=== PATIENT | male | born 1970 | race Asian ===

== ENCOUNTER 2024-10-18 08:35 | Emergency (ER) | payer BC, SELFPAY ==
[2024-10-18 08:35] VITALS: BMI 23.3
[2024-10-18 08:43] VITALS: BP 132/89; PULSE 92; RESP 18; TEMP 36.8; O2SAT 99; BMI 22.8
--- NOTE | 2024-10-18 08:53 | PD.EDRME ---
Rapid Medical Screening Exam RME Arrival date/time: 10/18/24 08:35 54-year-old male past medical history of CAD, pacemaker, and blood thinner presents emergency department complaining of epistaxis that started this morning. Chief Complaint: Epistaxis/Nasal Foreign Body Time Seen by Provider: 10/18/24 08:41 Vital signs: Vital Signs Temperature 98.2 F 10/18/24 08:43 Pulse Rate 92 10/18/24 08:43 Respiratory Rate 18 10/18/24 08:43 Blood Pressure 132/89 H 10/18/24 08:43 Pulse Oximetry (%) 99 10/18/24 08:43 Oxygen Delivery Method Room Air 10/18/24 08:43 Vital signs reviewed by provider: Yes
[2024-10-18 10:16] LABS: Basophils # (Auto) 0.1 Thou/mm3 (0.0-0.2); Basophils % (Auto) 1 % (0-2.5); Eosinophils # (Auto) 0.8 Thou/mm3 (0.0-0.5); Eosinophils % (Auto) 8 % (0-10); Hematocrit 40.4 % (41.0-53.0); Hemoglobin 13.6 g/dL (13.5-16.0); Immature Granulocytes % (Auto) 0 % (0-0); Immature Granulocytes Auto 0.04 Thou/mm3 (0.00-0.00); Lymphocytes # (Auto) 2.1 Thou/mm3 (1.0-4.8); Lymphocytes % (Auto) 21 % (10-50); Mean Corpuscular HGB Conc 33.7 g/dl (31.0-37.0); Mean Corpuscular Hemoglobin 30.6 pg (25.0-35.0); Mean Corpuscular Volume 91 fL (80-100); Monocytes # (Auto) 0.8 Thou/mm3 (0.0-0.8); Monocytes % (Auto) 8 % (0-12); Neutrophils # (Auto) 6.2 Thou/mm3 (1.8-7.7); Neutrophils % (Auto) 62 % (37-80); Nucleated Red Blood Cell % 0 /100 WBC (0); Platelet Count 328 Thou/mm3 (140-440); RDW Standard Deviation 41.6 fL (35.1-43.9); Red Blood Count 4.44 Miln/mm3 (4.50-5.90); White Blood Count 9.9 Thou/mm3 (3.8-10.6)
[2024-10-18 10:33] LABS: Partial Thromboplastin Time 28.6 Seconds (22.0-36.0); Prothrombin Time 10.9 Seconds (9.0-12.2)
[2024-10-18 10:48] LABS: Alanine Aminotransferase 33 U/L (10-49); Albumin, Serum 4.5 gm/dL (3.5-5.0); Albumin/Globulin Ratio 1.6 (1.2-2.2); Alkaline Phosphatase 97 U/L (46-116); Anion Gap 7 (7-16); Aspartate Amino Transferase 25 U/L (0-34); BUN/Creatinine Ratio 17 Ratio (12-20); Bilirubin,Total 0.7 mg/dL (0.3-1.2); Blood Urea Nitrogen 22 mg/dL (9-23); Calcium 9.7 mg/dL (8.3-10.6); Calcium (Corrected) 9.7 mg/dL (8.5-10.1); Chloride 105 mMol/L (98-107); Creatinine (Component) 1.3 mg/dL (0.6-1.3); Estimated Creatinine Clearance 55.2 mL/min (>60); Globulin 2.8 gm/dL (2.3-3.5); Glucose 155 mg/dL (74-106); Osmolality,Calculated 281 (275-295); Potassium 3.4 mMol/L (3.4-5.1); Sodium 138 mMol/L (136-145); Total Protein 7.3 gm/dL (5.7-8.2); eGFR > 60 See Note
--- NOTE | 2024-10-18 11:06 | EDNOTE_ITS ---
ED Epistaxis RME/HPI General Chief complaint: Epistaxis/Nasal Foreign Body Stated complaint: NOSE BLEEDING SINCE 0710 Time Seen by Provider: 10/18/24 08:41 Source: patient Arrival date/time: 10/18/24 08:35 54-year-old male past medical history of CAD, pacemaker, and blood thinner presents emergency department complaining of epistaxis that started this morning. Patient denies any recent illness or picking of nostril but does report was sneezing and bleeding started. Patient Nuys any other associated symptoms. Mode of arrival: ambulatory Limitations: no limitations RME / HPI RME / HPI Narrative: 10/18/24 08:35 54-year-old male past medical history of CAD, pacemaker, and blood thinner presents emergency department complaining of epistaxis that started this m orning. Related Data Previous Rx's ?Medication ?Instructions ?Recorded carvedilol 3.125 mg tablet 3.125 mg PO BIDWM #60 tabs 10/11/23 sacubitril 24 mg-valsartan 26 mg 1 tab PO BID #60 tabs 10/11/23 tablet (Entresto) spironolactone 25 mg tablet 25 mg PO QDAY #60 tabs 10/11/23 aspirin 81 mg capsule 81 mg PO QDAY #60 caps 10/12/23 Allergies Allergy/AdvReac Type Severity Reaction Status Date / Time No Known Allergies Allergy Verified 10/18/24 08:37 Review of Systems Review of Systems Systems Reviewed: All systems reviewed, normal except as documented Constitutional Constitutional: Reports system reviewed and no additional complaints, except as documented, Denies body ache(s), Denies chills and Denies fever(s) Eyes Eyes: Reports system reviewed and no additional complaints, except as documented and Denies change in vision ENT Ears, Nose, Mouth, and Throat: Reports system reviewed and no additional complaints, except as documented, Denies disequilibrium, Denies dizziness, Reports epistaxis, Denies sore throat and Denies vertigo Cardiovascular Cardiovascular: Reports system reviewed and no additional complaints, except as documented, Denies chest pain and Denies dyspnea Respiratory Respiratory: Reports system reviewed and no additional complaints, except as documented, Denies chest congestion, Denies cough and Denies dyspnea Gastrointestinal Gastrointestinal: Reports system reviewed and no additional complaints, except as documented, Denies abdominal pain, Denies nausea and Denies vomiting Musculoskeletal Musculoskeletal: Reports system reviewed and no additional complaints, except as documented, Denies abnormal gait and Denies arthralgias Integumentary/Breasts Skin/Breast: Reports system reviewed and no additional complaints, except as documented, Denies erythema, Denies rash and Denies wounds Neurologic Neurologic: Reports system reviewed and no additional complaints, except as documented, Denies abnormal gait, Denies disequilibrium, Denies dizziness and Denies vertigo ED Exam General Limitations: Present no limitations General appearance: Present alert and in no apparent distress Head Head exam: Present atraumatic Eye Eye exam: Present normal appearance, PERRL and EOMI ENT ENT exam: Present normal exam, normal oropharynx and mucous membranes moist Expanded ENT Exam Nasal speculum exam: Left: epistaxis (5.5 with 5 mL of air Rhino Rocket to left nare) Neck Neck exam: Present normal inspection, full ROM and trachea midline Chest Chest inspection: Present normal inspection and symmetric chest wall rise Respiratory Respiratory exam: Present normal lung sounds bilaterally Cardiovascular Cardiovascular exam: Present regular rate, normal rhythm and normal heart sounds Abdominal Exam Abdominal exam: Present soft and normal bowel sounds Extremities Exam Extremities exam: Present normal inspection and full ROM Back Exam Back exam: Present normal inspection and full ROM Neurological Exam Neurological exam: Present alert, oriented X3 and CN II-XII intact Psychiatric Psychiatric exam: Present normal affect and normal mood Skin Skin exam: Present warm, dry, intact and normal color Course Quality Measures none Orders Category Date Time Status CBC Stat Lab 10/18/24 09:50 Completed CMP [Comprehensive Metabolic Panel] Stat Lab 10/18/24 09:50 Completed PT [Prothrombin Time with INR] Stat Lab 10/18/24 09:50 Completed PTT [Partial Thromboplastin Time] Stat Lab 10/18/24 09:50 Completed Vital Signs Vital signs: Vital Signs Temperature 98.2 F 10/18/24 08:43 Pulse Rate 92 10/18/24 08:43 Respiratory Rate 18 10/18/24 08:43 Blood Pressure 132/89 H 10/18/24 08:43 Pulse Oximetry (%) 99 10/18/24 08:43 Oxygen Delivery Method Room Air 10/18/24 08:43 99% room air within normal limits Procedures -ED Epistaxis Control Time Out Performed: Yes Nostril: left Nose Prepped With: other (N/A) Direct Inspection: yes Clots Removed by: blowing nose Cautery Used: none Device Inserted: other (Rhino Rocket 5.5 and inflated with 5 mL of air) Device Size: 5 Patient Tolerated Procedure: Well Epistaxis MDM Narrative MDM Narrative:: 54-year-old male past medical history of CAD, pacemaker, and blood thinner presents emergency department complaining of epistaxis that started this morning. Patient denies any recent illness or picking of nostril but does report was sneezing and bleeding started. Patient Nuys any other associated symptoms. CBC was unremarkable. CMP was unremarkable. Coagulation studies were unremarkable as well. Size 5.5 Rhino Rocket inflated with 5 mL of air was inserted to left nare which patient tolerated well and stopped bleeding. Patient appears nontoxic and is hemodynamically stable. Instructed patient to return in 48 hours for removal of Rhino Rocket patient verbalized understanding. Instructed to return to emergency department for any worsening symptoms or as needed Patient data External records reviewed:: [facility] previous records Clinical information provided by:: patient Social determinants that could affect healthcare access:: none Patient has the following chronic illnesses:: See chart How is presenting disease/condition affected by chronic disease/condition?: uneffected by Evaluation data The following diagnostics were reviewed and interpreted by me:: lab results Lab and/or radiology exams considered but not ordered:: Ordered Interpretation Summary: Interpreted by me Medications / Prescriptions Medications or Prescriptions considered but not ordered:: N/A Medication administrations:: N/A Consultations Consultation(s) initiated? (list below): No Diagnosis Epistaxis Differential Diagnosis: anterior epistaxis and posterior epistaxis Most likely diagnosis given after review of the tests above:: Epistaxis Admission Indicated Admission indicated?: not indicated Admission Request Was there a request for admission?: No Disposition Plan Disposition Plan: Discharge Discharge Attestation Discharge Attestation: The patient and all family members were given an opportunity to ask questions and understood the discharge instructions. Discharge instructions specifically effects, indications for sooner follow up or return to the emergency department, and the expected course of current diagnosis. Patient condition: Stable Discharge Plan Plan Patient Disposition: HOME (Self Care) Disposition Comment: Stable Prescriptions/Referrals Prescriptions/Med Rec: No Action spironolactone 25 mg Tablet 25 mg PO QDAY Qty: 60 0RF carvedilol 3.125 mg Tablet 3.125 mg PO BIDWM Qty: 60 0RF Entresto 24-26 mg Tablet 1 tab PO BID Qty: 60 0RF aspirin 81 mg capsule 81 mg PO QDAY Qty: 60 1RF Referrals: Ted Shell MD [Primary Care Provider] - In 1 week Problem List Clinical Impression: Epistaxis Patient/Caregiver Discharge Instructions Discharge Activity: activity as tolerated Education Materials: Nosebleed, ED Epistaxis (Adult) Additional Instructions: Take Tylenol as needed for pain. Follow-up with primary care provider upon discharge and request referral to ENT if symptoms persist. Return to the emergency department in 48 hours for removal of Rhino Rocket. Return to emergency department for any worsening symptoms or as needed. Print Language: Japanese Stand Alone Forms: Clau Award Info., Patient Portal Info Letter PA/INSPECTOR CASING Supervising Physician BILL/ALBER Supervising Physician: Dr. Faustin
[2024-10-18 11:39] VITALS: BP 123/85; PULSE 86; RESP 18; TEMP 36.6; O2SAT 95
== END 2024-10-18 12:26 | disposition home or self-care (01) ==
PROVIDERS: Emergency Provider Emergency Medicine; PCP Family Medicine
DX: R04.0 Epistaxis (principal); I25.10 Atherosclerotic heart disease of native coronary artery without angina pectoris; Z95.0 Presence of cardiac pacemaker
CPT/HCPCS: 30901; 36415; 80053; 85025; 85610; 85730; 99283

== ENCOUNTER 2024-10-20 12:12 | Emergency (ER) | payer BC, MEDICAID, SELFPAY ==
[2024-10-20 12:13] VITALS: BMI 22.8
[2024-10-20 12:25] VITALS: BP 136/74; PULSE 74; RESP 18; TEMP 36.9; O2SAT 99
[2024-10-20] MEDS: SILVER NITRATE 1 APPL EA 2 APPL TOP (12:57)
[2024-10-20] MEDS: OXYMETAZOLINE NAS SPRY 0.05% 15 ML BTL NASAL (12:58)
[2024-10-20] MEDS: HYDROcodone/APAP 5/325 TABLET 1 TAB PO (14:26)
--- NOTE | 2024-10-20 15:07 | EDNOTE_ITS ---
ED Epistaxis RME/HPI General Chief complaint: Epistaxis/Nasal Foreign Body Stated complaint: NEEDS RHINO ROCKET REMOVED Time Seen by Provider: 10/20/24 12:18 Arrival date/time: 10/20/24 12:12 54-year-old male with medical history hypertension, hypercholesterolemia, significant for pacemaker placement on Eliquis presents emergency department today requesting Rhino Rocket removal patient had a placed 2 days ago on last visit Limitations: no limitations Related Data Previous Rx's ?Medication ?Instructions ?Recorded carvedilol 3.125 mg tablet 3.125 mg PO BIDWM #60 tabs 10/11/23 sacubitril 24 mg-valsartan 26 mg 1 tab PO BID #60 tabs 10/11/23 tablet (Entresto) spironolactone 25 mg tablet 25 mg PO QDAY #60 tabs 10/11/23 aspirin 81 mg capsule 81 mg PO QDAY #60 caps 10/12/23 Allergies Allergy/AdvReac Type Severity Reaction Status Date / Time No Known Allergies Allergy Verified 10/20/24 12:13 Review of Systems Review of Systems Systems Reviewed: All systems reviewed, normal except as documented Constitutional Constitutional: Reports system reviewed and no additional complaints, except as documented, Denies fever(s) and Denies headache(s) Eyes Eyes: Reports system reviewed and no additional complaints, except as documented and Denies blurry vision ENT Ears, Nose, Mouth, and Throat: Reports system reviewed and no additional complaints, except as documented, Denies headache(s), Denies nasal congestion, Denies nasal discharge and Reports other (Left-sided nosebleed) Cardiovascular Cardiovascular: Reports system reviewed and no additional complaints, except as documented, Denies chest pain and Denies dyspnea Respiratory Respiratory: Reports system reviewed and no additional complaints, except as documented, Denies chest congestion, Denies cough and Denies dyspnea Gastrointestinal Gastrointestinal: Reports system reviewed and no additional complaints, except as documented and Denies abdominal pain Integumentary/Breasts Skin/Breast: Reports system reviewed and no additional complaints, except as documented and Denies rash Neurologic Neurologic: Reports system reviewed and no additional complaints, except as documented, Reports as per HPI and Denies headache(s) Past Medical History Past Medical History NEUROLOGIC: Negative Neurological Disorders or Seizures CARDIAC: Negative Cardiac Disorders or Congestive Heart Failure RESPIRATORY: Negative Chronic Obstructive Pulmonary Disease (COPD) or Asthma GASTROINTESTINAL: Negative Gastrointestinal Disorders GENITOURINARY: Negative Genitourinary Disorders or Renal Disease MUSCULOSKELETAL: Negative Musculoskeletal Disorders ENDOCRINE: Negative Endocrine Disorders, Diabetes Mellitus Type 1 or Diabetes Mellitus Type 2 HEMATOLOGIC: Negative Blood Disorders or Sickle Cell Disease OTHER HISTORY: Negative Hospitalization, Autoimmune Disease, Down Syndrome, Developmental Delay, Shingles, Falls, Blood Transfusions, Anesthesia Reactions, MRSA or Vancomycin-Resistant Enterococci Family History FAMILY HISTORY: Positive Family Cardiac Disorders Social History SMOKING STATUS: Never smoker ED Exam General Limitations: Present no limitations General appearance: Present alert and in no apparent distress Head Head exam: Present atraumatic Eye Eye exam: Present normal appearance, PERRL and EOMI ENT ENT exam: Present mucous membranes moist and other (Bleeding left nare) Neck Neck exam: Present normal inspection, full ROM and trachea midline Chest Chest inspection: Present normal inspection and symmetric chest wall rise Respiratory Respiratory exam: Present normal lung sounds bilaterally Cardiovascular Cardiovascular exam: Present regular rate, normal rhythm and normal heart sounds Abdominal Exam Abdominal exam: Present soft and normal bowel sounds Extremities Exam Extremities exam: Present normal inspection and full ROM Back Exam Back exam: Present normal inspection and full ROM Neurological Exam Neurological exam: Present alert, oriented X3 and CN II-XII intact Psychiatric Psychiatric exam: Present normal affect and normal mood Skin Skin exam: Present warm, dry, intact and normal color Course Quality Measures none Orders Category Date Time Status HYDROcodone*/APAP 5/325 [[place] 5/325] Med 10/20/24 14:22 Discontinued 1 tab PO X1 ONE Oxymetazoline Deyvi Peosta 0.05% [Afrin Nasal [place]] Med 10/20/24 12:53 Discontinued See Dose Instructions NASAL X1 ONE Silver Nitrate Applicators Med 10/20/24 12:53 Discontinued 2 appl TOP X1 ONE Vital Signs Vital signs: Vital Signs Temperature 98.5 F 10/20/24 12:25 Pulse Rate 74 10/20/24 12:25 Respiratory Rate 18 10/20/24 12:25 Blood Pressure 136/74 H 10/20/24 12:25 Pulse Oximetry (%) 99 10/20/24 12:25 Oxygen Delivery Method Room Air 10/20/24 12:25 O2 saturation 99% room air within normal limits Epistaxis MDM Narrative MDM Narrative:: 54-year-old male with medical history hypertension, hypercholesterolemia, significant for pacemaker placement on Eliquis presents emergency department today requesting Rhino Rocket removal patient had a placed 2 days ago on last visit Patient's Rhino Rocket was removed and patient started bleeding immediately attempted to apply pressure and use Afrin spray without success Attempted to cauterize with silver nitrate nostrils also without success Patient was given [place] for pain After putting a 7.5 nasal Rhino Rocket bleeding has completely resolved Patient has no bleeding at the time of discharge I explained to the patient if he develops more bleeding or any other concerns he must return to the ER immediately for further evaluation otherwise patient instructed to return in 3 days for Rhino Rocket removal for the next 2 days patient instructed not to take any Eliquis Patient data External records reviewed:: [facility] previous records Clinical information provided by:: patient Social determinants that could affect healthcare access:: none Patient has the following chronic illnesses:: Hypertension, hypercholesterolemia, pacemaker placement How is presenting disease/condition affected by chronic disease/condition?: no chronic disease Evaluation data The following diagnostics were reviewed and interpreted by me:: other (specify) (N/A) Lab and/or radiology exams considered but not ordered:: Considered and not ordered Interpretation Summary: N/A Medications / Prescriptions Medications or Prescriptions considered but not ordered:: Given Medication administrations:: Medication Administration History Discontinued Medications Hydrocodone Bitart/Acetaminophen (Hydrocodone/Apap 5/325 Tablet) 1 tab PO X1 ONE Stop: 10/20/24 14:23 Last Admin: 10/20/24 14:26 Dose: 1 tab Documented By: OA Oxymetazoline HCl (Oxymetazoline Deyvi Peosta 0.05% 15 Ml Btl) 0 spray NASAL X1 ONE Stop: 10/20/24 12:54 Last Admin: 10/20/24 12:58 Dose: 2 spray Documented By: DB Silver Nitrate (Silver Nitrate 1 Appl Ea) 2 appl TOP X1 ONE Stop: 10/20/24 12:54 Last Admin: 10/20/24 12:57 Dose: 2 appl Documented By: DB Comments: applied by UYEN Gamble Consultations Consultation(s) initiated? (list below): No Diagnosis Epistaxis Differential Diagnosis: anterior epistaxis and posterior epistaxis Most likely diagnosis given after review of the tests above:: Anterior epistaxis Admission Indicated Admission indicated?: not indicated Admission Request Was there a request for admission?: No Disposition Plan Disposition Plan: Discharge Discharge Attestation Discharge Attestation: The patient and all family members were given an opportunity to ask questions and understood the discharge instructions. Discharge instructions specifically effects, indications for sooner follow up or return to the emergency department, and the expected course of current diagnosis. Patient condition: Stable Discharge Plan Plan Patient Disposition: HOME (Self Care) Disposition Comment: Stable Prescriptions/Referrals Prescriptions/Med Rec: No Action spironolactone 25 mg Tablet 25 mg PO QDAY Qty: 60 0RF carvedilol 3.125 mg Tablet 3.125 mg PO BIDWM Qty: 60 0RF Entresto 24-26 mg Tablet 1 tab PO BID Qty: 60 0RF aspirin 81 mg capsule 81 mg PO QDAY Qty: 60 1RF Referrals: Bess Vazquez FNP [Primary Care Provider] - In 1 week Problem List Clinical Impression: Epistaxis Patient/Caregiver Discharge Instructions Education Materials: ED Epistaxis (Adult) Additional Instructions: Please return in 3 days for packing removal for worsening symptoms return immediately Please do not take your Eliquis for the next 3 days Print Language: Danish Stand Alone Forms: Clau Award Info., Patient Portal Info Letter BILL/ALBER Supervising Physician BILL/ALBER Supervising Physician: dr alvarez
== END 2024-10-20 15:13 | disposition home or self-care (01) ==
PROVIDERS: Emergency Provider Emergency Medicine; PCP Registered Nurse Community Health
DX: R04.0 Epistaxis (principal); I10 Essential (primary) hypertension; E78.00 Pure hypercholesterolemia, unspecified; Z79.01 Long term (current) use of anticoagulants; Z95.0 Presence of cardiac pacemaker
CPT/HCPCS: 30901; 99283; A9270

== ENCOUNTER 2024-10-23 15:26 | Emergency (ER) | payer BC, MEDICAID, SELFPAY ==
[2024-10-23 15:27] VITALS: BMI 28.3
[2024-10-23 16:27] VITALS: BP 127/78; PULSE 77; RESP 19; TEMP 36.7; O2SAT 98; BMI 22.1
--- NOTE | 2024-10-23 18:26 | PD.EDEPIST ---
ED Epistaxis RME/HPI General Chief complaint: Epistaxis/Nasal Foreign Body Stated complaint: NEEDS NASAL PASKING REMOVED LEFT NARES Time Seen by Provider: 10/23/24 18:26 Arrival date/time: 10/23/24 15:26 54 year old male present to emergency room for nasal packing removal placed 3 days ago. no complication LOCATION: nose SEVERITY: Symptoms are described as being severe with limitations on activities of daily living CONTEXT: The patient is unable to identify any inciting events. DURATION/TIMING: The symptoms started approximately 3 days ago ASSOCIATED SYMPTOMS: The patient is unable to identify any other associated symptoms. MODIFYING FACTORS: The patient is unable to identify any alleviating or aggravating symptoms. PERTINENT ROS: no fevers, no cough, no chest pain/shortness of breath no nausea,vomiting, diarrhea, no dizziness/headache no rash no loc/syncope episode REVIEW OF SYSTEMS: See History of Present Illness - with the exception of those mentioned in the history of present illness, all other systems reviewed and reported as negative GENERAL: In general the patient is awake, interactive, in an emergency department gurney. HEAD/EYES/EARS/NOSE/THROAT: + left nare rhino rocket noted. no active bleeding normo-cephalic, atraumatic, mucus membranes are moist, anicteric, palpebral conjunctiva is pink, trachea is midline. EXTREMITY: no tenderness to palpation over the long bones or large joints of the bilateral upper and lower extremities, no joint swelling, no joint erythema, no signs of trauma, no unilateral leg swelling and no peripheral edema. SKIN: warm, dry, well-perfused, no jaundice, no rash, no telangiectasias or petechia. PSYCH: calm, cooperative, no evidence of psychosis or agitation Related Data Previous Rx's ?Medication ?Instructions ?Recorded carvedilol 3.125 mg tablet 3.125 mg PO BIDWM #60 tabs 10/11/23 sacubitril 24 mg-valsartan 26 mg 1 tab PO BID #60 tabs 10/11/23 tablet (Entresto) spironolactone 25 mg tablet 25 mg PO QDAY #60 tabs 10/11/23 aspirin 81 mg capsule 81 mg PO QDAY #60 caps 10/12/23 Allergies Allergy/AdvReac Type Severity Reaction Status Date / Time No Known Allergies Allergy Verified 10/23/24 15:28 Course Course Course Narrative: nasal packing removal of left nare discussed about aftercare ( avoid picking, blowing) no complications no active bleeding Quality Measures none Vital Signs Vital signs: Vital Signs Temperature 98.0 F 10/23/24 16:27 Pulse Rate 77 10/23/24 16:27 Respiratory Rate 19 10/23/24 16:27 Blood Pressure 127/78 10/23/24 16:27 Pulse Oximetry (%) 98 10/23/24 16:27 Oxygen Delivery Method Room Air 10/23/24 16:27 Epistaxis Patient data External records reviewed:: [facility] previous records Clinical information provided by:: patient Social determinants that could affect healthcare access:: none Patient has the following chronic illnesses:: as state in chart How is presenting disease/condition affected by chronic disease/condition?: exacerbated by Evaluation data The following diagnostics were reviewed and interpreted by me:: other (specify) (none ) Lab and/or radiology exams considered but not ordered:: none Interpretation Summary: none Medications / Prescriptions Medications or Prescriptions considered but not ordered:: none Medication administrations:: none Consultations Consultation(s) initiated? (list below): No Diagnosis Most likely diagnosis given after review of the tests above:: nasal packing removal Admission Indicated Admission indicated?: not indicated Admission Request Was there a request for admission?: No Disposition Plan Disposition Plan: Discharge Discharge Attestation Discharge Attestation: The patient and all family members were given an opportunity to ask questions and understood the discharge instructions. Discharge instructions specifically effects, indications for sooner follow up or return to the emergency department, and the expected course of current diagnosis. Patient condition: Stable Discharge Plan Plan Patient Disposition: HOME (Self Care) Health Concerns: Follow with PMD as directed Return to ED if sx worsen Prescriptions/Referrals Prescriptions/Med Rec: No Action spironolactone 25 mg Tablet 25 mg PO QDAY Qty: 60 0RF carvedilol 3.125 mg Tablet 3.125 mg PO BIDWM Qty: 60 0RF Entresto 24-26 mg Tablet 1 tab PO BID Qty: 60 0RF aspirin 81 mg capsule 81 mg PO QDAY Qty: 60 1RF Problem List Clinical Impression: Encounter for removal of nasal packing Patient/Caregiver Discharge Instructions Print Language: Jamaican Stand Alone Forms: Clau Award Info., Patient Portal Info Letter
== END 2024-10-23 18:30 | disposition home or self-care (01) ==
LOC: SERX 18:36
PROVIDERS: Emergency Provider Emergency Medicine; PCP Registered Nurse Community Health
DX: Z48.00 Encounter for change or removal of nonsurgical wound dressing (principal)
CPT/HCPCS: 99282